=== PATIENT | female | born 2005 | race Caucasian/White ===

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

== ENCOUNTER 2025-02-01 13:57 | Outpatient (CLI) | payer BC, SELFPAY ==
--- NOTE | ~2025-02-01 | US_ITS ---
Pelvic ultrasound. Clinical History: Displacement of IUD Technique: Realtime transabdominal and transvaginal scanning of the pelvis was performed. Color flow Doppler and Doppler spectral analysis were performed. Findings: The uterus is anteverted, and measures 6.9 x 3.1 x 4.0 cm. The endometrial stripe has a th ickness of 4 mm. IUD in satisfactory position. The right ovary measures 3.1 x 2.9 x 3.3 cm. Simple right ovarian cyst measures 2.6 cm in diameter. The left ovary measures 2.1 x 1.9 x 1.5 cm. No significant left ovarian or adnexal mass is seen. There is trace free fluid in the cul de sac. Impression: IUD in satisfactory position. 2.6 cm simple right ovarian cyst. Reviewed, dictated and finalized at [facility]. Impression: IUD in satisfactory position. 2.6 cm simple right ovarian cyst.
== END 2025-02-01 13:58 | disposition home or self-care (01) ==
LOC: GOSHIMG 13:57
PROVIDERS: PCP Obstetrics & Gynecology Gynecology; Visit Provider Obstetrics & Gynecology Gynecology
DX: N83.291 Other ovarian cyst, right side (principal); Z97.5 Presence of (intrauterine) contraceptive device
CPT/HCPCS: 76830; 76856